=== PATIENT | male | born 1980 | race Caucasian/White ===

== ENCOUNTER 2025-01-09 20:16 | Emergency (ER) | payer BC ==
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
[2025-01-09] MEDS: traMADol 50 MG TAB PO STA (20:52)
[2025-01-09] MEDS: ACETAMINOPHEN TAB 500 MG TAB PO STA (20:54)
[2025-01-09] MEDS: ETODOLAC 400 MG TAB PO STA (20:56)
[2025-01-09] MEDS: traMADol 50 MG STARTER PACK 3 TAB BTL PO STA (21:39)
[2025-01-09] MEDS: ACET/COD 300 MG/30 MG STARTER PACK 6 TAB BTL PO STA (21:40)
[2025-01-09 21:50] VITALS: BP 161/97; PULSE 74; RESP 16; TEMP 98.3
== END 2025-01-09 21:50 | disposition home or self-care (01) ==
LOC: EC 20:16
DX: T20.10XA Burn of first degree of head, face, and neck, unspecified site, initial encounter (principal); T22.112A Burn of first degree of left forearm, initial encounter; T22.111A Burn of first degree of right forearm, initial encounter; F17.200 Nicotine dependence, unspecified, uncomplicated; Z91.030 Bee allergy status; X19.XXXA Contact with other heat and hot substances, initial encounter
CPT/HCPCS: 99283